=== PATIENT | female | born 1965 | race Caucasian/White ===

== ENCOUNTER 2019-10-24 | Emergency (ER) | payer BC ==
[~2019-10-24] MED LIST: ALBUTEROL0.5 % IN; BACTRIM DS1 TAB PO; BUSPAR10 M1 PO; CELEBREX200 MG PO; CIPROFLOXACN500 MG PO; CORTISPORIN OTI10 ML AD; DOXYCYCL HYC100 MG PO; FIORICET PO; FLONASE NASAL50 MCG; FLONASE0.05 %; KEFLEX250 MG PO; KEFLEX500 MG PO; LYRICA50 MG PO; MEDDOSEPAK PO; NEXIUM40 M1 PO; PERCOCET1 TA2 OR; PHENERGAN12.5 MG/TA PO; PREVACID30 M3 PO; PRILOSEC20 MG PO; PROAIR HFA IN; RELPAX40 MG OR; ROBAXIN250 MG OR; TET/DIP TOX1 ML IM; TRAMADOL HCL50 MG PO; TRAZODONE50 MG PO; XANAX0.25 MG PO; ZANTAC 75 OR; ZANTAC150 MG OR; ZOFRAN4 MG PO; [UNRECOGNIZED DRUG - OTHER] PO
[2019-10-24] MEDS ORDERED: PROZAC10 MG PO (17:31)
[2019-10-24] MEDS ORDERED: AMBIEN5 MG PO (17:32)
[2019-10-24] MEDS ORDERED: PERCOCET1 TA4 PO (17:36)
[2019-10-24] MEDS ORDERED: KLONOPIN1 MG PO (17:37)
[2019-10-24] MEDS ORDERED: HYDROCO/APAP1 T10 PO (19:02)
== END 2019-10-24 19:34 | disposition home or self-care (01) | DRG 563 ==
PROC: 2W3AX1Z Immobilization of Right Upper Arm using Splint (ICD-10-PCS; principal; 2019-10-24)
DX: S42.301A Unspecified fracture of shaft of humerus, right arm, initial encounter for closed fracture (principal); W10.9XXA Fall (on) (from) unspecified stairs and steps, initial encounter; Y92.009 Unspecified place in unspecified non-institutional (private) residence as the place of occurrence of the external cause

== ENCOUNTER 2021-11-23 15:04 | Emergency (ER) | payer MEDICARE ==
[~2021-11-23] VITALS: Ht 157.5 cm; Wt 84.0 kg
[2021-11-23] VITALS (43 sets, daily range): BP systolic 84–198; BP diastolic 32–150
[~2021-11-23 15:04] MED LIST changes: +AMBIEN10 MG PO; +HYDROCO/APAP1 T10 PO; +KLONOPIN1 MG PO; +PERCOCET1 TA4 PO; +PROZAC20 MG PO
[2021-11-23 15:43] LABS: HEMATOCRIT 26.8 % (37.0-47.0); HEMOGLOBIN 8.4 g/dl (12.0-16.0); IMMATURE GRANULOCYTES 0.4 % (0.0-5.0); MEAN CELL VOLUME 75.3 fL CALC (80.0-100.0); MEAN CORPUSCULAR HGB 23.6 pG CALC (26.0-32.0); MEAN CORPUSCULAR HGB CONC 31.3 g/dL CAL (32.0-36.0); NEUT# 13.36 thou/uL (2.00-7.15); RED BLOOD COUNT 3.56 mill/uL (4.20-5.60); RED CELL DISTRI WIDTH 16.8 % (11.5-15.5)
[2021-11-23 16:03] LABS: BUN 19 mg/dL (7-17); BUN/CREATININE RATIO 25 (12-20 (CALC)); CARBON DIOXIDE 24 mmol/l (22-30); CHLORIDE 98 mmol/l (95-108); CREATININE 0.8 mg/dL (0.5-1.0); GFR > 60 ML/MIN (>=60 (CALC)); GFR FOR AFR.AMER. > 60 ML/MIN (>=60 (CALC)); SGOT/AST 43 u/l (14-36)
[2021-11-23 16:04] LABS: ALBUMIN 3.1 g/dL (3.2-5.0); ALKALINE PHOSPHATASE 231 u/l (38-126); ANION GAP 12 (6-22 (CALC)); BILIRUBIN, TOTAL 1.8 mg/dL (0.0-1.4); POTASSIUM 2.7 mmol/l (3.5-5.1); SODIUM 131 mmol/l (137-146); TOTAL PROTEIN 6.4 g/dL (6.3-8.2)
[2021-11-23 16:08] LABS: INTERNATIONAL NORMALIZED RATIO 1.1 RATIO (0.7-1.3); PROTHROMBIN TIME 11.4 SECONDS (9.0-12.5)
[2021-11-23 16:22] LABS: URINE BLOOD DIPSTICK LARGE (NEGATIVE); URINE COLOR YELLOW; URINE GLUCOSE - DIPSTICK NEGATIVE (NEGATIVE); URINE KETONE NEGATIVE (NEGATIVE); URINE LEUK ESTERASE NEGATIVE (NEGATIVE); URINE PROTEIN - DIPSTICK 30 mg/dL (NEG-TRACE)
[2021-11-23 16:32] LABS: URINE BILIRUBIN - DIPSTICK SMALL (NEGATIVE); URINE NITRITE - DIPSTICK NEGATIVE (Negative)
[2021-11-23] MEDS ORDERED: BUSPIRONE30 MG PO (16:32)
[2021-11-23] MEDS ORDERED: FIORICET 50-3001 CAP PO (16:35)
[2021-11-23 16:37] LABS: URINE AMORPH SEDIMENT MANY hpf (NONE-FEW); URINE SQUAMOUS EPITHELIAL CELL FEW EPI/hpf (0-FEW)
[2021-11-23] MEDS ORDERED: HYDROCO/APAP1 T10 PO (16:39)
--- NOTE | 2021-11-25 07:51 | NUR ---
PRELIMINARY BLOOD CULTURE FROM 11/23/2021 SHOWS 3 OUT OF 4 BOTTLES WITH GRAM NEGATIVE RODS. PATIENT WAS TRANSFERRED TO [facility]. SPOKE WITH NURSE GONZALES AND FAXED PRELIMINARY CULTURE RESULTS.
--- NOTE | 2021-11-29 08:09 | NUR ---
FAXED FINAL BC AND CSF CULTURE RESULTS TO [facility]ABLO AT [facility].
== END 2021-11-23 21:27 | disposition short-term general hospital (02) ==
LOC: ED 15:04
PROVIDERS: Family Medicine
PROC: 009U3ZX Drainage of Spinal Canal, Percutaneous Approach, Diagnostic (ICD-10-PCS; principal; 2021-11-23)
PROC: 06HY33Z Insertion of Infusion Device into Lower Vein, Percutaneous Approach (ICD-10-PCS; 2021-11-23)
DX: A41.9 Sepsis, unspecified organism (principal); R65.20 Severe sepsis without septic shock; J18.9 Pneumonia, unspecified organism; I21.4 Non-ST elevation (NSTEMI) myocardial infarction; I63.9 Cerebral infarction, unspecified; G03.9 Meningitis, unspecified; R29.702 NIHSS score 2; E87.6 Hypokalemia; F32.A Depression, unspecified; J45.909 Unspecified asthma, uncomplicated; R53.1 Weakness
CPT/HCPCS: J0133; J3475; Q9967; S0073

== ENCOUNTER 2022-04-03 09:05 | Emergency (ER) | payer MEDICARE ==
[~2022-04-03] VITALS: Ht 157.5 cm; Wt 77.0 kg
[~2022-04-03 09:05] MED LIST changes: +BUSPIRONE30 MG PO; +FIORICET 50-3001 CAP PO
[2022-04-03 09:43] LABS: MEAN CORPUSCULAR HGB 25.5 pG CALC (26.0-32.0); MEAN CORPUSCULAR HGB CONC 31.4 g/dL CAL (32.0-36.0); NEUT# 14.34 thou/uL (2.00-7.15); RED BLOOD COUNT 4.67 mill/uL (4.20-5.60); RED CELL DISTRI WIDTH 17.4 % (11.5-15.5)
[2022-04-03 10:03] LABS: URINE BLOOD DIPSTICK TRACE-INTACT (NEGATIVE); URINE COLOR BROWN; URINE GLUCOSE - DIPSTICK NEGATIVE (NEGATIVE); URINE KETONE NEGATIVE (NEGATIVE); URINE LEUK ESTERASE NEGATIVE (NEGATIVE); URINE PH 5.5 (4.5-8.0); URINE PROTEIN - DIPSTICK 30 mg/dL (NEG-TRACE); URINE SPECIFIC GRAVITY >=1.030
[2022-04-03 10:18] LABS: HEMATOCRIT 37.9 % (37.0-47.0); HEMOGLOBIN 11.9 g/dl (12.0-16.0); IMMATURE GRANULOCYTES 8.3 % (0.0-5.0); MEAN CELL VOLUME 81.2 fL CALC (80.0-100.0)
[2022-04-03 10:24] LABS: URINE BILIRUBIN - DIPSTICK MODERATE (NEGATIVE); URINE NITRITE - DIPSTICK NEGATIVE (Negative)
[2022-04-03 10:24] LABS: INTERNATIONAL NORMALIZED RATIO 3.5 RATIO (0.7-1.3); PROTHROMBIN TIME 33.8 SECONDS (9.0-12.5)
[2022-04-03 10:25] LABS: ALBUMIN 2.7 g/dL (3.2-5.0); MAGNESIUM 2.1 mg/dL (1.6-2.3); TOTAL PROTEIN 6.1 g/dL (6.3-8.2)
[2022-04-03 10:26] LABS: URINE AMORPH SEDIMENT FEW hpf (NONE-FEW); URINE BACTERIA RARE hpf; URINE SQUAMOUS EPITHELIAL CELL MODERATE EPI/hpf (0-FEW)
[2022-04-03 10:45] LABS: BILIRUBIN, TOTAL 3.9 mg/dL (0.0-1.4)
[2022-04-03 10:48] LABS: POTASSIUM 2.3 mmol/l (3.5-5.1)
[2022-04-03 13:00] VITALS: BP 110/78
--- NOTE | 2022-04-04 08:54 | NUR ---
PRELIM BLOOD CX RESULTS SHOW GRAM - RODS IN 2/2 VIALS. PT TRANSFERRED TO [facility]. PT 04/03/22.
== END 2022-04-03 13:01 | disposition short-term general hospital (02) ==
LOC: ED 09:05
PROVIDERS: Internal Medicine
PROC: 0T9B70Z Drainage of Bladder with Drainage Device, Via Natural or Artificial Opening (ICD-10-PCS; principal; 2022-04-03)
PROC: 05HM33Z Insertion of Infusion Device into Right Internal Jugular Vein, Percutaneous Approach (ICD-10-PCS; 2022-04-03)
DX: A41.9 Sepsis, unspecified organism (principal); E87.6 Hypokalemia; J45.909 Unspecified asthma, uncomplicated; F32.A Depression, unspecified; Z86.79 Personal history of other diseases of the circulatory system
CPT/HCPCS: J0692